=== PATIENT | female | born 1980 | race Caucasian/White ===

== ENCOUNTER → 2016-09-10 | Outpatient (CLI) | payer BC ==
[~2016-09-10] MED LIST: LEVO125T70; [UNRECOGNIZED DRUG - CODE] PO
[2016-09-12 01:48] LABS: FREE T4 (FREE THYROXINE)-BATCH 1.28 NG/DL (0.78-2.19)
== END ==
LOC: LAB 12:54
PROVIDERS: ATTEND Family Medicine
DX: G43.909 Migraine, unspecified, not intractable, without status migrainosus (principal); E03.9 Hypothyroidism, unspecified
CPT/HCPCS: 36415; 82607; 82747; 84439; 84443